=== PATIENT | female | born 1980 | race Caucasian/White ===

== ENCOUNTER 2016-11-08 20:21 | Emergency (ER) | payer OTHER ==
[~2016-11-08] VITALS: Ht 152.4 cm; Wt 72.6 kg
[2016-11-08] MEDS ORDERED: PROZAC40 M1 PO (20:46)
[2016-11-08] MEDS ORDERED: TRAMADOL HCL50 MG PO (20:46)
[2016-11-08] MEDS ORDERED: VALTREX500 MG PO (21:53)
[2016-11-08 22:16] LABS: BILIRUBIN NEGATIVE (NEGATIVE); BLOOD 3+ (NEGATIVE); CLARITY SL CLOUDY (CLEAR); COLOR YELLOW (YELLOW); GLUCOSE NEGATIVE (NEGATIVE); KETONE NEGATIVE (NEGATIVE); LEUKO ESTERASE NEGATIVE (NEGATIVE); NITRITE NEGATIVE (NEGATIVE); PROTEIN NEGATIVE (NEGATIVE); SPECIFIC GRAVITY >= 1.030 (1.005-1.030)
[2016-11-08 22:36] LABS: BACTERIA TRACE; MUCOUS TRACE; WBC 0-2 wbc/hpf (0-5)
[2016-11-08 22:37] LABS: URINE REFLEX COMMENT YES (NO)
== END 2016-11-08 22:56 | disposition home or self-care (01) ==
LOC: ED 20:21
PROVIDERS: Nurse Practitioner Family
DX: A60.04 Herpesviral vulvovaginitis (principal); Z79.899 Other long term (current) drug therapy

== ENCOUNTER 2017-03-04 17:00 | Emergency (ER) | payer OTHER ==
[~2017-03-04] VITALS: Ht 152.4 cm; Wt 72.6 kg
[~2017-03-04 17:00] MED LIST: PROZAC40 M1 PO; TRAMADOL HCL50 MG PO; VALTREX500 MG PO
[2017-03-04] MEDS ORDERED: CYCLOBENZAPRINE10 MG PO (18:55)
[2017-03-04] MEDS ORDERED: MEDROL DOSEPAK4 MG PO (18:55)
== END 2017-03-04 19:03 | disposition home or self-care (01) ==
LOC: ED 17:00
DX: S16.1XXA Strain of muscle, fascia and tendon at neck level, initial encounter (principal); F17.200 Nicotine dependence, unspecified, uncomplicated; Z79.899 Other long term (current) drug therapy; V49.9XXA Car occupant (driver) (passenger) injured in unspecified traffic accident, initial encounter; Y93.89 Activity, other specified; Y92.413 State road as the place of occurrence of the external cause; Y99.8 Other external cause status

== ENCOUNTER 2017-10-29 13:24 | Emergency (ER) | payer OTHER ==
[~2017-10-29] VITALS: Ht 152.4 cm; Wt 74.8 kg
[~2017-10-29 13:24] MED LIST changes: +CYCLOBENZAPRINE10 MG PO; +MEDROL DOSEPAK4 MG PO
[2017-10-29] MEDS ORDERED: VENLAFAXINE HYD75 M3 PO (13:27)
[2017-10-29] MEDS ORDERED: SEPTDS PO (14:18)
[2017-10-29] MEDS ORDERED: CEPHALEXIN500 M1 PO (14:18)
== END 2017-10-29 14:34 | disposition home or self-care (01) ==
LOC: ED 13:24
DX: L02.01 Cutaneous abscess of face (principal); L02.11 Cutaneous abscess of neck; F17.200 Nicotine dependence, unspecified, uncomplicated; Z79.899 Other long term (current) drug therapy; Z86.14 Personal history of Methicillin resistant Staphylococcus aureus infection